=== PATIENT | male | born 1985 | race African-American/Black ===

== ENCOUNTER 2016-12-30 22:22 | Emergency (ER) | payer MEDICAID ==
[~2016-12-30] VITALS: Ht 180.3 cm; Wt 108.9 kg
[2016-12-30 22:41] VITALS: BP 135/78
== END 2016-12-31 03:07 | disposition home or self-care (01) ==
LOC: ER 22:25
DX: S70.211A Abrasion, right hip, initial encounter (principal); M54.5 Low back pain; M54.9 Dorsalgia, unspecified; R51 Headache; V23.4XXA Motorcycle driver injured in collision with car, pick-up truck or van in traffic accident, initial encounter; Y93.89 Activity, other specified; Y99.8 Other external cause status; Y92.89 Other specified places as the place of occurrence of the external cause
CPT/HCPCS: 70450; 72125; 72128; 72131